=== PATIENT | male | born 1970 | race Caucasian/White ===

== ENCOUNTER → 2023-03-27 | Outpatient (CLI) | payer OTHER ==
[2023-03-28 18:05] LABS: COTININE, URN, SCREEN Negative ng/mL (Cutoff 100)
== END | disposition home or self-care (01) ==
LOC: LAB SHORT 11:49 → LAB 11:49
PROVIDERS: Orthopaedic Surgery
DX: M16.11 Unilateral primary osteoarthritis, right hip (principal)

== ENCOUNTER 2023-07-30 06:35 | Day surgery (SDC) | payer OTHER ==
[2023-07-30] VITALS (13 sets, daily range): BP systolic 107–1285; BP diastolic 63–89
[~2023-07-30] VITALS: Ht 180.3 cm; Wt 113.3 kg
[~2023-07-30 06:35] MED LIST: Acetaminophen 500 MG Tab PO SCH; CeFAZolin Sodium 2,000 MG in NS 100 ML IV SCH; Chlorhexidine Mouth Care 15 ML UDC MT SCH; DICL75ER PO; GABA300 PO; Lactated Ringer's 1,000 ML IV SCH; MELO7.5 PO; NAPR500 PO; OxyCODONE HCL 10 MG TABCR PO SCH; Viagra100 MG PO
[2023-07-30] MEDS ORDERED: ACET500 PO (06:54)
[2023-07-30] MEDS ORDERED: FentaNYL Citrate 50 MCG/ML 2 ML Injection ONE (07:11)
[2023-07-30] MEDS ORDERED: propofoL 60 ML IV ONE (07:11)
[2023-07-30] MEDS ORDERED: Midazolam HCl 1MG / ML 2ML Vial ONE (07:11)
[2023-07-30] MEDS ORDERED: Ropivacaine 0.5% HCl/Pf 123.125 MG,EPINEPHrine HCL 0.25 MG,Ketorolac Tromethamine 15 MG... INFIL SCH (07:35)
[2023-07-30] MEDS ORDERED: ePHEDrine Sulfate 50 MG/ML 1ML Injection ONE (07:51)
[2023-07-30] MEDS ORDERED: Dexamethasone Sod Phos 10 MG/ML 1ML VIAL ONE (07:52)
[2023-07-30] MEDS ORDERED: Ondansetron HCl 2 MG / ML 2ML Vial ONE (07:52)
[2023-07-30] MEDS ORDERED: Glycopyrrolate 0.2 MG/ML 5ML VIAL ONE (07:52)
[2023-07-30] MEDS ORDERED: Bisacodyl 10 MG Supp PR PRN (08:00)
[2023-07-30] MEDS ORDERED: Acetaminophen 500 MG Tab PO SCH ×2 (08:00→16:00)
[2023-07-30] MEDS ORDERED: Promethazine HCl 25 MG Tab PO PRN (08:00)
[2023-07-30] MEDS ORDERED: Prochlorperazine Edisylate 10 mg Vial IV PRN (08:00)
[2023-07-30] MEDS ORDERED: OxyCODONE HCL 5 MG TAB PO PRN ×2 (08:05)
[2023-07-30] MEDS ORDERED: Metoclopramide HCl 5MG / ML 2ML Vial IV PRN (08:05)
[2023-07-30] MEDS ORDERED: HYDROmorphone HCl/Pf 1MG SYR IV PRN (08:05)
[2023-07-30] MEDS ORDERED: Ondansetron HCl 2 MG / ML 2ML Vial IV PRN (08:05)
[2023-07-30] MEDS ORDERED: DiphenhydrAMINE HCL 25 MG Cap PO PRN (08:10)
[2023-07-30] MEDS ORDERED: Lactated Ringer's 1,000 ML IV SCH (08:10)
[2023-07-30] MEDS ORDERED: Magnesium Hydroxide Conc 10 ML UDC PO PRN (08:10)
[2023-07-30] MEDS ORDERED: propofoL 40 ML IV ONE ×2 (08:33→09:11)
[2023-07-30] MEDS ORDERED: Gabapentin 300 MG Cap PO SCH (09:00)
[2023-07-30] MEDS ORDERED: Docusate Sodium 100 MG Cap PO SCH (09:00)
[2023-07-30] MEDS ORDERED: Ketorolac Tromethamine 15mg Vial IV SCH (12:00)
[2023-07-30] MEDS ORDERED: Aspir 8181 MG PO (14:50)
[2023-07-30] MEDS ORDERED: OXYC5 PO (14:51)
[2023-07-30] MEDS ORDERED: CeFAZolin Sodium 2,000 MG in NS 100 ML IV SCH (16:00)
--- NOTE | 2023-07-30 16:33 | NUR ---
DISCHARGE S/P R RACHEL PRINEO DRESSING/AQUACEL ADDED PRIOR TO DC, TEDS/POLAR HOWARD. A&OX4, VSS/RA, SRINATH PO, VOIDING, AMB FWW IN ROOM/TO BRP, UP TO CHAIR, PASSED PHYSICAL THERAPY, PAIN MANAGED, IV DC'D. DC INS PROVIDED. PT REPORTED UNDERSTANDING THOSE INSTRUCTIONS. LEFT FLOOR VIA WC WITH RN TO GO HOME WITH , WITH ALL PERSONAL POSSESSIONS INCLUDING DC PACKET, AQUACEL DRESSING X2, POLAR HOWARD; PT REP SCRIPTS ARE READY FOR PICKUP AT [facility].
[2023-07-31] MEDS ORDERED: Aspirin 81 MG Chew PO SCH (09:00)
== END 2023-07-30 16:12 | disposition home or self-care (01) ==
LOC: ORSCMMR 06:35 → ORD 07:30 → ORSCMMR 07:30 → ORD 10:15 → SURS 11:22 → ORD 13:00 → ORSCMMR 16:12
PROVIDERS: Orthopaedic Surgery
PROC: 0SR90JA Replacement of Right Hip Joint with Synthetic Substitute, Uncemented, Open Approach (ICD-10-PCS; principal; 2023-07-30 07:30)
DX: M16.11 Unilateral primary osteoarthritis, right hip (principal); Z87.891 Personal history of nicotine dependence; Z79.899 Other long term (current) drug therapy; E66.9 Obesity, unspecified; Z68.35 Body mass index [BMI] 35.0-35.9, adult
CPT/HCPCS: 72170; 97110; 97116; 97162; A9270; C1713; C1776; J0171; J0690; J0735; J1100; J1885; J2250; J2405; J2704; J2795; J3010; J7120

== ENCOUNTER 2023-12-01 00:19 | Observation (INO) | payer OTHER ==
[2023-12-01] VITALS (14 sets, daily range): BP systolic 126–156; BP diastolic 75–103
[~2023-12-01] VITALS: Ht 180.3 cm; Wt 108.9 kg
[~2023-12-01 00:19] MED LIST changes: +ACET500 PO; -Acetaminophen 500 MG Tab PO SCH; +Aspir 8181 MG PO; -CeFAZolin Sodium 2,000 MG in NS 100 ML IV SCH; -Chlorhexidine Mouth Care 15 ML UDC MT SCH; -Lactated Ringer's 1,000 ML IV SCH; +OXAYDO5 M2 PO; +OXYC5 PO; -OxyCODONE HCL 10 MG TABCR PO SCH; +SULTRIDS PO; +VISBIOME 112.51 EACH PO
[2023-12-01 00:47] LABS: Hematocrit 46.6 % (37.0-53.0); Mean Corpuscular HGB 29.6 pg (26.0-34.0); Mean Corpuscular HGB Conc 34.3 g/dL (31.5-36.5); Mean Corpuscular Volume 86 fL (80-100); Platelet Count 343 K/mm3 (150-400); RDW Coefficient Variation 13.5 % (11.7-14.2); RDW Standard Deviation 42.9 fL (35.1-46.3); White Blood Cell Count 16.06 K/mm3 (4.00-11.30)
[2023-12-01] MEDS ORDERED: Lactated Ringer's 1,000 ML IV SCH (01:00)
[2023-12-01] MEDS ORDERED: HYDROmorphone HCl/Pf 1MG SYR IV ONE ×2 (01:00→02:35)
[2023-12-01 01:09] LABS: Albumin, Blood 3.9 g/dL (3.4-5.0); Bilirubin, Total 0.2 mg/dL (0.1-1.0); Bun/Creatinine Ratio 16.5 (12.0-20.0); Calcium, Blood 9.7 mg/dL (8.5-10.1); Creatinine, Blood 1.27 mg/dL (0.60-1.20); Globulin, Blood 4.1 g/dL (2.2-4.0); Potassium, Blood 4.3 mmol/L (3.5-5.5)
[2023-12-01] MEDS ORDERED: Ondansetron HCl 2 MG / ML 2ML Vial ONE ×2 (01:09→14:55)
[2023-12-01] MEDS ORDERED: Ondansetron HCl 2 MG / ML 2ML Vial IV ONE (01:10)
[2023-12-01 01:13] LABS: BASOPHILS ABSOLUTE MAN 0.16 K/mm3 (0.00-0.23); BASOPHILS PERCENT MAN 1 % (0-2); EOSINOPHILS ABSOLUTE MAN 0.32 K/mm3 (0.00-0.68); EOSINOPHILS PERCENT MAN 2 % (0-6); LYMPHOCYTES % ATYPICAL MANUAL 3 % (0-0); LYMPHOCYTES ABSOLUTE MAN 5.94 K/mm3 (0.84-5.20); LYMPHOCYTES PERCENT MAN 34 % (21-46); MONOCYTES ABSOLUTE MAN 1.28 K/mm3 (0.16-1.47); MONOCYTES PERCENT MAN 8 % (4-13); NEUTROPHILS ABSOLUTE MAN 8.35 K/mm3 (1.96-9.15); SEG NEUTROPHILS PERCENT MAN 52 % (41-73); TOTAL CELLS COUNTED 100
[2023-12-01] MEDS ORDERED: Mag Hydrox/AL Hydrox/Simeth 30 ML UDC PO ONE (02:35)
[2023-12-01] MEDS ORDERED: Metoclopramide HCl 5MG / ML 2ML Vial IV ONE (06:05)
[2023-12-01] MEDS ORDERED: DiphenhydrAMINE HCl 50 MG/ML 1ML Vial IV ONE (06:10)
[2023-12-01] MEDS ORDERED: FentaNYL Citrate 50 MCG/ML 2 ML Injection IV PRN ×3 (06:20→16:35)
[2023-12-01] MEDS ORDERED: NS 1,000 ML IV SCH ×2 (06:30→16:35)
[2023-12-01] MEDS ORDERED: Ondansetron HCl 2 MG / ML 2ML Vial IV PRN (06:30)
[2023-12-01] MEDS ORDERED: GABA300 PO (06:38)
[2023-12-01] MEDS ORDERED: HydrALAZINE HCl 20 MG / ML 1ML Vial IV PRN (06:40)
--- NOTE | 2023-12-01 14:35 | NUR ---
PATIENT OFF FLOOR WITH SURGICAL STAFF
[2023-12-01] MEDS ORDERED: Bupivacaine 0.5% HCl 5 MG/ML 30MLVIAL ONE (14:45)
[2023-12-01] MEDS ORDERED: propofoL 80 ML IV ONE (14:53)
[2023-12-01] MEDS ORDERED: Rocuronium Bromide 10 MG/ML 5ML Injection IV ONE (14:54)
[2023-12-01] MEDS ORDERED: Midazolam HCl 1MG / ML 2ML Vial ONE (14:54)
[2023-12-01] MEDS ORDERED: FentaNYL Citrate 50 MCG/ML 2 ML Injection ONE (14:54)
[2023-12-01] MEDS ORDERED: Dexamethasone Sod Phos 10 MG/ML 1ML VIAL ONE (14:55)
[2023-12-01] MEDS ORDERED: Ketorolac Tromethamine 30mg Vial ONE (14:55)
[2023-12-01] MEDS ORDERED: CeFAZolin Sodium 1000 mg Vial ONE (15:10)
[2023-12-01] MEDS ORDERED: CeFAZolin Sodium 2,000 MG in NS 100 ML IV SCH (15:10)
[2023-12-01] MEDS ORDERED: Sugammadex Sodium 200 MG/2ML SDV (100 MG/ML) ONE (15:28)
[2023-12-01] MEDS ORDERED: HYDROcodone 5-APAP 325 TAB PO PRN (16:35)
--- NOTE | 2023-12-01 16:46 | NUR ---
SHIFT SUMMARY PATIENT IN ROOM INDEPENDENTLY THIS SHIFT. R AC IV PRESENT FROM ER, NS RUNNING. TRANSFERED TO SURGICAL CARE FOR CHOLECYSTECTOMY. MEDICATED SEVERAL TIMES WITH FENTANYL FOR ABDOMINAL PAIN. NOT BACK TO FLOOR AT THIS TIME.
[2023-12-01] MEDS ORDERED: HYDROmorphone HCl/Pf 1MG SYR ONE (17:08)
--- NOTE | 2023-12-01 17:21 | NUR ---
PT IV TO RIGHT AC INFILTRATED. PEA SIZE BRUSIED LOOKING AREA. D/C'D WITH CATH INTACT. HAND RT 20-G PLACED FIRST TRY. SRINATH WELL.
--- NOTE | 2023-12-01 18:34 | NUR ---
1745 PATIENT RETURNED TO MEDICAL FLOOR POST OP. 4 ABDOMINAL TROCH SITES. STERISTRIPS INTACT, MINIMAL SEROSANGUINOUS DRAINAGE. C/O INCISIONAL PAIN 04/11. VITALS PERFORMED, A/OX4. PATIENT SMILING AND LAUGHING, STATING HOW MUCH BETTER HE FEELS, FIANCE IN ROOM TO VISIT. NO URINE OUTPUT SINCE SURGERY. CALL LIGHT IN REACH, ABLE TO MAKE NEEDS KNOWN. CARES ONGOING.
[2023-12-02 00:55] VITALS: BP 121/73
[2023-12-02 04:10] VITALS: BP 135/86
[2023-12-02 05:26] LABS: BASOPHILS ABSOLUTE AUTO 0.03 K/mm3 (0.00-0.23); BASOPHILS PERCENT AUTO 0 % (0-2); EOSINOPHILS ABSOLUTE AUTO 0.01 K/mm3 (0.00-0.68); EOSINOPHILS PERCENT AUTO 0 % (0-6); Hematocrit 42.9 % (37.0-53.0); Hemoglobin 14.5 g/dL (13.5-17.5); IMMATURE GRAN ABSOLUTE AUTO 0.08 K/mm3 (0.00-0.10); IMMATURE GRAN PERCENT AUTO 0 % (0-1); LYMPHOCYTES ABSOLUTE AUTO 2.75 K/mm3 (0.84-5.20); LYMPHOCYTES PERCENT AUTO 14 % (21-46); MONOCYTES ABSOLUTE AUTO 1.74 K/mm3 (0.16-1.47); MONOCYTES PERCENT AUTO 9 % (4-13); Mean Corpuscular HGB 29.2 pg (26.0-34.0); Mean Corpuscular HGB Conc 33.8 g/dL (31.5-36.5); Mean Corpuscular Volume 87 fL (80-100); Mean Platelet Volume 9.1 fL (9.1-12.4); NEUTROPHILS ABSOLUTE AUTO 15.38 K/mm3 (1.96-9.15); NEUTROPHILS PERCENT AUTO 77 % (41-73); Platelet Count 280 K/mm3 (150-400); RDW Coefficient Variation 13.6 % (11.7-14.2); RDW Standard Deviation 42.6 fL (35.1-46.3); Red Blood Cell Count 4.96 M/mm3 (4.30-5.90); White Blood Cell Count 19.99 K/mm3 (4.00-11.30)
[2023-12-02 05:54] LABS: Albumin, Blood 3.3 g/dL (3.4-5.0); Albumin/Globulin Ratio 0.9 (0.8-1.8); Bilirubin, Total 0.5 mg/dL (0.1-1.0); Bun/Creatinine Ratio 13.6 (12.0-20.0); Calcium, Blood 9.4 mg/dL (8.5-10.1); Creatinine, Blood 0.88 mg/dL (0.60-1.20); Globulin, Blood 3.7 g/dL (2.2-4.0); Potassium, Blood 4.3 mmol/L (3.5-5.5)
--- NOTE | 2023-12-02 06:22 | NUR ---
AQUATIC BIOLOGIST SUMMARY PT HAS DONE VERY WELL OVERNIGHT. 0/10 PAIN. NO NAUSEA VOMITTING. EATING AND DRINKING WELL. AMBULATING AND CARING FOR HIMSELF. HE IS A BIT ANXIOUS TO TALK TO THE DOCTOR THIS MORNING AND HOPING HE CAN GO HOME. LAP SITES X4 LOOK EXCELLENT. NO CONCERNS.
[2023-12-02 07:52] VITALS: BP 124/86
[2023-12-02] MEDS ORDERED: Enoxaparin 40 MG/0.4 ML SYR SC SCH (09:00)
[2023-12-02] MEDS ORDERED: HYDR1TAB94 PO (11:18)
--- NOTE | 2023-12-02 11:37 | NUR ---
SHIFT/DISCHARGE SUMMARY: PATIENT A/OX4, CALM, PLEASANT AND COOPERATIVE c CARE. PATIENT HAD LAP KORINA DONE BY DR. MIDDLETON YESTERDAY. PATIENT HAD 4 SMALL INCISION TO ABDOMEN, NO S/S OF INFECTIONS, REDNESS OR SWELLING, STERI STRIPS C/D/I. PATIENT REPORTS SLIGHT TENDERNESS TO SITE, OFFERED PAIN MEDS PER EMAR, BUT DECLINE. PATIENT TOLERATED CARDIAC DIET FOR BREAKFAST, DENIES N/V AND DISCOMFORT TO ABDOMEN AFTER HAVING THE MEALS. PATIENT RECEIVED SCHEDULED AM MEDS PER EMAR. VITAL SIGNS REVIEWED. PATIENT EXPRESSESS HES READY AND WOULD LIKE TO GO HOME FIRST THING THIS AM. NOTIFIED DR. MCFARLAND REGARDING PATIENT REQUEST. PIV DC'D PATIENT DISCHARGE HOME. DISCHARGE INSTRUCTIONS PACKET GIVEN TO PATIENT. EDUCATED PATIENT REGARDING LAP KORINA, INCISION CARE, NEW RX, AND TO F/U c PCP. PATIENT VERBALIZED UNDERSTANDING AND NO FURTHER QUESTIONS. RX WAS FAXED TO PATIENT PREFERRED PHARMACY. ALL PATIENT PERSONAL BELONGINGS WERE SENT HOME c THE PATIENT. PATIENT LEFT THE ROOM AT 1137, TRANSPORTED VIA WHEELCHAIR BY RALEIGH COHN TO PATIENT ENTRANCE.
== END 2023-12-02 11:36 | disposition home or self-care (01) ==
LOC: ER 00:19 → MEDS 00:20 → ERHOLD 00:20 → ER 06:33 → ERHOLD 06:33 → MEDS 08:45
PROVIDERS: Internal Medicine; Physician Assistant; Surgery; ADMIT Internal Medicine
PROC: 0FT44ZZ Resection of Gallbladder, Percutaneous Endoscopic Approach (ICD-10-PCS; principal; 2023-12-01 14:30)
DX: K80.12 Calculus of gallbladder with acute and chronic cholecystitis without obstruction (principal); Z87.891 Personal history of nicotine dependence; Z88.0 Allergy status to penicillin; Z88.8 Allergy status to other drugs, medicaments and biological substances; Z79.82 Long term (current) use of aspirin; Z79.899 Other long term (current) drug therapy
CPT/HCPCS: 36415; 74022; 74177; 76705; 80053; 83690; 84484; 85025; 88304; 93005; 93010; 94762; 96361; 96372; 96374-59; 96375; 96376; 99285-25; A9270; C1729; G0378; J0690; J1100; J1170; J1200; J1650; J1885; J2250; J2405; J2704; J2765; J3010; J7030; J7120; Q9967